=== PATIENT | female | born 1980 | race Caucasian/White ===

== ENCOUNTER 2024-06-06 00:09 | Day surgery (SDC) | payer BC, SELFPAY ==
--- NOTE | 2024-05-30 17:48 | SUR.PREOP ---
Report to the Outpatient Waiting Room, entrance under the green pavilion located off [facility], at time _1000_ on date _06/06/2024_. Planned Procedure Time: _1200_.? Time changes happen often and if your time is changed the preop area will call you the afternoon before. - You and your visitor will be asked to self-screen and do not enter if you have any COVID symptoms. Please call surgeon if you need to reschedule. - A mask is optional within the hospital at this time. Patients may have clear liquids (water, carbonated beverages, clear teas, apple juice) until 3 hours prior to surgery with a maximum of 20 ounces. - No food from midnight until time of surgery and no smoking. This includes no chewing gum, candy or mints. - Infants may have breast milk until 4 hours before surgery, formula 6 hours prior to surgery. - Children will be allowed to drink immediately following surgery.? If applicable, please bring a bottle or sippy cup to assist with drinking. Juice, water, soda, and popsicles are readily available.? For infants on formula, please bring formula the day of surgery.? Pacifiers are allowed. Take only the following medications with a SIP of water on the morning of surgery: _NA_ DO NOT STOP ANY OF YOUR OTHER PRESCRIPTION MEDICATIONS PRIOR TO SURGERY EXCEPT THE FOLLOWING Medications to discontinue per physician _vitamins and supplements_ Date to take last dose_06/03/2024_ Please no make-up, nail turkmen, hairspray, perfume, deodorant, or body powder the day of surgery.? No jewelry (including any body piercings) or valuables the day of surgery, leave them at home.? Please take a shower or bath the night before, or the morning of, surgery with an antibacterial soap.? Wear comfortable, loose fitting clothing.? Children are encouraged to wear pajamas. - Jewelry must be removed prior to entering the operating room.? Rings and piercings that are not removed may be cut off. - The hospital will not accept responsibility for valuables.? - Please leave all valuables, including medications, at home the day of surgery. If you are going home after surgery, a licensed skip load driver must drive you home.? - NO public transportation without another adult if you receive anesthesia. - We recommend that an adult stay with you for 24 hours following discharge. - We also recommend that you do not drive, make important decision, drink alcoholic beverages, or take any drugs that were not prescribed by your health care provider for at least 24 hours after your discharge time. For Pediatric surgeries, we recommend two adults accompany the child home. Follow any additional instructions given to you from your surgeon. Telephone instructions given to _Liban_and asked if any additional questions and then verbalized understanding. Patient advised to call surgeon office or pre surgery nurse liaison [phone] if any additional questions.
[2024-05-30 17:59] VITALS: BMI 21.7
[2024-06-06] MEDS: LACTATED RINGERS 1,000 ML 30 ML IV CONT (10:35)
[2024-06-06] MEDS: ACETAMINOPHEN 500 MG TABLET 1000 MG PO (10:50)
--- NOTE | 2024-06-06 11:16 | P.PNAN_ITS ---
Anes - Initial Pre Proc Eval Procedure: Operation Date: 06/06/24 12:00 Proposed Procedures p Hysteroscopy, Dilation and Curettage, Venessa Endometrial Ablation - Zeeshan Rankin MD Date/Time: 06/06/24 11:16 Surgeon: Zeeshan Rankin MD Pre Op Diagnosis: heavy bleeding Patient Data Age: 43 Gender: F Height: 1.68 m Weight: 61.24 kg Allergies Allergy/AdvReac Type Severity Reaction Status Date / Time doxycycline Allergy Rash Verified 05/30/24 17:56 Home Medications Medication Instructions Recorded Confirmed Type almotriptan malate 12.5 mg tablet See Rx Instructions PO .COMPLEX #7 09/26/20 05/30/24 Rx tabs Adults Multivitamin 1 tablet PO DAILY 05/30/24 05/30/24 History Patient hx anesthesia problems: other (Low bp w neuraxial anesthesia in the past, nausea and feeling poorly. ) Family hx anesthesia problems: none Results Review: All pre-operative results and documents have been reviewed as part of the pre- operative evaluation. FOR[facility]LY [facility] Past Medical History Medical History Breast asymmetry Migraine Seasonal allergies Surgical History Surgical History History of cosmetic surgery 12/30 - surgery for breast asymmetry Family History Family History Father Hypertension Mother Depression Sibling Depression Social History Social History Smoking status: Never smoker Second hand tobacco smoke exposure: No Alcohol intake: never Alcohol use details: OCCASSIONAL Substance use: never Substance use type: does not use Living arrangements: with family Additional living arrangements comments: with and children Occupation/Education: occupation Gender identity (if verbalized by the patient): Female Sexual Orientation (if Verbalized by the Patient): Straight or Heterosexual Spiritual care concerns: No Agree to blood products: Yes Anes - Eval Final PreProcedure Day of Procedure 06/06/24 11:16 Patient weight: normal Heart: regular rate and rhythm Lungs: clear to auscultation Airway: Mallampati scale class II Neurological: alert and oriented Last oral intake: >/= 8 hours ASA classification: I Emergent: no Anesthetic plan: proceed Anesthesia type and monitoring: general GIVS and standard monitoring Results Review: All pre-operative results and documents have been reviewed as part of the pre- operative evaluation. Remote hx of seizures but taken off meds for quite a number of years and still seizure free. Hx of hypoglycemia when NPO per pt. Informed Consent: The patient's anesthetic plan and its attendant risks and benefits were discussed with the patient/family/POA. Questions were solicited and answers provided to the satisfaction of the patient/family/POA.
--- NOTE | 2024-06-06 11:32 | PM.IMHP ---
H&P: HPI History of Present Illness Date/Time: 06/06/24 11:32 Chief Complaint: Heavy, irregular periods Narrative: 43 y/o with menses that are irregular and difficult to predict, sometimes lasting 2 weeks at a time. Her has had a vasectomy. She says she has completed her childbearing. She is interested in surgical management of her problem. Review of Systems Review of Systems: All systems reviewed & are unremarkable except as noted in HPI and below PMFSH Past Medical History Medical History Breast asymmetry Migraine Seasonal allergies Surgical History Surgical History History of cosmetic surgery 12/30 - surgery for breast asymmetry Family History Family History Father Hypertension Mother Depression Sibling Depression Social History Social History Smoking status: Never smoker Second hand tobacco smoke exposure: No Alcohol intake: never Alcohol use details: OCCASSIONAL Substance use: never Substance use type: does not use Living arrangements: with family Additional living arrangements comments: with and children Occupation/Education: occupation Gender identity (if verbalized by the patient): Female Sexual Orientation (if Verbalized by the Patient): Straight or Heterosexual Spiritual care concerns: No Agree to blood products: Yes Meds Home Medications and Allergies Home Medications Medication Instructions Recorded Confirmed Type almotriptan malate 12.5 mg tablet See Rx Instructions PO .COMPLEX #7 09/26/20 05/30/24 Rx tabs Adults Multivitamin 1 tablet PO DAILY 05/30/24 05/30/24 History Allergies Allergy/AdvReac Type Severity Reaction Status Date / Time doxycycline Allergy Rash Verified 05/30/24 17:56 Exam Const: Orientation/consciousness: patient oriented x3 Other: Well-developed, well-nourished female in no acute distress. Neck: Thyroid: thyroid normal Lymphatic: no lymphadenopathy noted (in neck, axilla or inguinal nodes) Resp: Effort & Inspection: normal respiratory effort Auscultation: clear to auscultation bilaterally Cardio: Rate: regular rate Rhythm: regular rhythm Heart sounds: S1 normal heart sound present and S2 normal heart sound present GI: Other: ABD: Soft, nontender, nondistended. No guarding or rebound tenderness. No hepatosplenomegaly. : General: Yes no CVA tenderness Other: External genitalia: normal female hair distribution, without lesion. Urethral meatus: no lesion, non prolapsed. Bladder: no mass, nontender Vagina: well-estrogenized, without lesion or discharge. No cystocele or rectocele. Cervix: no lesion or discharge. Uterus: small, anteverted, freely mobile, nontender Adnexa: no mass or tenderness. Anus/perineum: no lesions, nontender Back/Spine/Pelvis: Back: no CVA tenderness Skin: General skin exam: normal color and no rashes or lesions noted Neuro: General: patient oriented x3 Extrem: Other: Extremities: nontender with no edema Psych: Mental Status: mental status grossly normal Affect: normal affect Assessment and Plan Assessment and plan (1) Menometrorrhagia: Code(s): N92.1 - Excessive and frequent menstruation with irregular cycle Status: Acute Assessment and Plan: A: Menometrorrhagia. P: We have reviewed medical as well a surgical management options, and she prefers the latter. Specifically, I have offered her a hysteroscopy with dilation and sharp curettage, and endometrial ablation. She understands risks of surgery to include risks of anesthesia, risks of pain, infection, bleeding, blood products, thromboembolic phenomena and damage to adjacent structures such as bowel, bladder, ureters, blood vessels and nerves. She understands all these risks and elects to proceed with surgery.
[2024-06-06 11:55] VITALS: BMI 22.8
[2024-06-06 12:00] VITALS: BP 121/73; PULSE 55; RESP 16; TEMP 36.6; O2SAT 96
[2024-06-06 12:03] LABS: BEDSIDEPREGUCG Negative (Negative)
--- NOTE | 2024-06-06 12:03 | WPDHPUPDATE1 ---
History and Physical Update Update Date/Time: 06/06/24 12:03 History and Physical has been reviewed, including an updated exam of the patient. There are NO changes in the patient's condition. Risks, benefits, and alternatives have been discussed and questions answered. Patient agrees to proceed with procedure.
[2024-06-06] MEDS: LIDOCAINE HCL 1% LOCAL INJ 10 ML VIAL INFILTRATE (12:24)
[2024-06-06 12:40] VITALS: BP 107/68; PULSE 80; RESP 21; O2SAT 95
--- NOTE | 2024-06-06 12:44 | W.PM.PROC2 ---
Procedure Note - Detailed Date of Procedure 06/06/24 Pre-op Diagnosis Menometrorrhagia Post-op Diagnosis Same Procedure Performed Hysteroscopy Dilation and sharp curettage Endometrial ablation Surgeon Zeeshan Rankin MD Anesthesia MAC and Local (1% lidocaine) Findings Normal-appearing endometrial cavity. Both tubal ostia seen. Description of Procedure The patient was taken to the operating room where she was prepared and draped in the usual sterile fashion in the dorsal lithotomy position. The bladder was drained with a red rubber catheter. A sterile speculum was placed into the vagina. The anterior lip of the cervix was grasped with single-tooth tenaculum. Ten mL of 1% lidocaine was administered in a paracervical block. The cervix was then gently dilated using Hegar dilators until a 6 mm dilator could be passed. Hysteroscopy was performed using sterile saline as a distention medium. Findings are as noted above. Sharp curettage was then performed, and endometrial curettings were collected on a Telfa pad and passed off to be sent to pathology. Finally, the the Venessa device was advanced and endometrial ablation commenced without difficulty. The device was withdrawn and a second look was taken using the hysteroscope. Excellent coverage of the endometrial cavity was noted. The tenaculum was removed. Hemostasis was excellent. Sponge, lap, needle and instrument counts were correct. The patient was awakened and taken to the recovery room in stable condition. I was present and scrubbed through the entire procedure. Estimated Blood Loss 5 Drains No Packing No Pathology Yes (Endometrial curettings) Complications None Condition Stable Disposition PACU
[2024-06-06] MEDS: ONDANSETRON INJ 4 MG/2 ML VIAL IV PUSH (12:53)
[2024-06-06 13:10] VITALS: BP 107/74; PULSE 67; RESP 18; O2SAT 98
[2024-06-06 13:40] VITALS: BP 116/85; PULSE 73; RESP 20
[2024-06-06 13:50] VITALS: BP 111/67; PULSE 75; RESP 16
== END 2024-06-06 14:00 | disposition home or self-care (01) ==
PROVIDERS: PCP Family Medicine; Visit Provider Obstetrics & Gynecology
PROC: 0U5B8ZZ Destruction of Endometrium, Via Natural or Artificial Opening Endoscopic (ICD-10-PCS; CPT 58563; principal; 2024-06-06 12:00)
DX: N92.1 Excessive and frequent menstruation with irregular cycle (principal); G89.18 Other acute postprocedural pain; Z98.890 Other specified postprocedural states
CPT/HCPCS: 58563; 88305; A9270; J2003; J2250; J2405; J2704; J3010; J7120